=== PATIENT | female | born 1970 | race Caucasian/White ===

== ENCOUNTER → 2017-08-07 | Outpatient (CLI) | payer OTHER ==
[~2017-08-07] MED LIST: ACETAMINOPHEN PR; AUGMENTIN PO; BACTRIM DS TABL1 TA1 PO; BACTRIM DS TABL1 TAB PO; BENZAPRIL PO; CEPHALEXIN500 M1 PO; COLACE PO; DAKIN'S MODIF1000 ML EXT; FLAGYL PO; GLIPIZIDE10 MG PO; GLUCOTROL PO; HCTZ PO; IBUPROFEN PO; IBUPROFEN800 MG PO; METFORMIN PO; METRONIDAZOLE PO; NAPROSYN500 MG PO; PERCOCET5/325 PO; ROBAXIN500 MG PO; SEPTRA DS PO; SODIUM HYPOCHLORITE; ZYVOX PO
--- NOTE | ~2017-08-07 | CR170 ---
[facility] A Service of [facility] / [facility] RADIOLOGY TEXT RESULTS PATIENT: LOPEZ DANIELLE LOCATION: [place] : [birth year] UNIT #: [id number] AGE: [address]: Brock Carrero MD SEX: F ORDER DR: [id number] [place] [id number] O MR#: [id number] Acc #: [id number] NAME: LOPEZ DANIELLE : 1970 SEX: F STUDY DATE/TIME: 08/07/2017 11:08 UNIT: SRAD ROOM: STUDY DESCRIPTION: CR Knee 2 Views Rt Attending Physician: Brock Carrero M.D. Referring Physician: Brock Carrero M.D. Ordering Physician: Brock Carrero M.D. Primary Care Physician: Brock Carrero M.D. MEDICAL IMAGING REPORT This report is preliminary unless electronic signature is present. EXAM Right knee 08/07/2017 HISTORY 47-year-old female with right knee pain for several months. No specific injury. COMPARISON STUDIES None. FINDINGS 2 views of the right knee demonstrate no acute fracture or dislocation. No joint effusion. Mild degenerative change of patellofemoral joint. Mild medial compartment joint space narrowing. Soft tissues are unremarkable. IMPRESSION 1. No acute fracture or dislocation. 2. Mild patellofemoral arthrosis. 3. Mild medial compartment joint space narrowing. Dictated by... Yimi Patel M.D. THIS IS AN ELECTRONICALLY VERIFIED REPORT Yimi Patel M.D. at 08/08/2017 10:46 AM LALITHA/pcl TD: 08/07/2017 23:29 JOB #: [id number] [facility] A Service [facility] RADIOLOGY TEXT RESULTS PATIENT: LOPEZ DANIELLE [facility] [birth year] UN[facility] #: [id number] AGE: [address]: Brock Carrreo MD SEX: F ORDER DR: MEDICAL IMAGING REPORT Page 1 of 1
== END | disposition home or self-care (01) ==
LOC: SRAD 10:47
DX: M25.561 Pain in right knee (principal); M17.11 Unilateral primary osteoarthritis, right knee; M25.861 Other specified joint disorders, right knee
CPT/HCPCS: 73560